=== PATIENT | female | born 1980 ===

== ENCOUNTER 2017-08-07 11:51 | Inpatient (IN) | payer OTHER ==
[~2017-08-07] VITALS: Ht 165.1 cm; Wt 4.1 kg
[2017-08-08] MEDS ORDERED: ALDOMET500 MG PO (09:38)
[2017-08-08] MEDS ORDERED: PRENATAL TABLE1 EAC3 PO (09:40)
[2017-08-11] MEDS ORDERED: SURFAK240 M1 PO (08:00)
[2017-08-11] MEDS ORDERED: PERCOCET 5-3251 EACH PO (08:00)
== END 2017-08-11 10:25 | disposition home or self-care (01) | DRG 766 ==
LOC: O/R 08-08 06:45 → LDR 08-08 06:45 → OB/GYN 08-08 06:45 → O/R 08-08 15:09 → OB/GYN 08-08 16:33
PROVIDERS: Obstetrics & Gynecology
PROC: 0UL70ZZ Occlusion of Bilateral Fallopian Tubes, Open Approach (ICD-10-PCS; 2017-08-08)
PROC: 10907ZC Drainage of Amniotic Fluid, Therapeutic from Products of Conception, Via Natural or Artificial Opening (ICD-10-PCS; 2017-08-08)
PROC: 3E0P7VZ Introduction of Hormone into Female Reproductive, Via Natural or Artificial Opening (ICD-10-PCS; 2017-08-08)
PROC: 3E033VJ Introduction of Other Hormone into Peripheral Vein, Percutaneous Approach (ICD-10-PCS; 2017-08-08)
PROC: 4A033R1 Measurement of Arterial Saturation, Peripheral, Percutaneous Approach (ICD-10-PCS; 2017-08-08)
PROC: 4A1HXCZ Monitoring of Products of Conception, Cardiac Rate, External Approach (ICD-10-PCS; 2017-08-08)
PROC: 10D00Z1 Extraction of Products of Conception, Low, Open Approach (ICD-10-PCS; principal; 2017-08-08 15:00)
DX: O62.1 Secondary uterine inertia (principal); O13.4 Gestational [pregnancy-induced] hypertension without significant proteinuria, complicating childbirth; Z3A.39 39 weeks gestation of pregnancy; Z37.0 Single live birth; Z30.2 Encounter for sterilization; O09.523 Supervision of elderly multigravida, third trimester